=== PATIENT | female | born 1960 | race Caucasian/White ===

== ENCOUNTER 2023-05-25 08:09 | Outpatient (CLI) | payer OTHER | END 2023-05-25 08:10 | disposition home or self-care (01) | LOC: CT 08:09 | PROVIDERS: ATTEND Physician Assistant Medical | DX: K59.00 Constipation, unspecified (principal); R10.31 Right lower quadrant pain; N28.1 Cyst of kidney, acquired | CPT/HCPCS: 74177; 82565 ==